=== PATIENT | female | born 1945 | race Caucasian/White ===

== ENCOUNTER 2018-08-31 10:49 | Day surgery (SDC) | payer OTHER ==
[~2018-08-31] VITALS: Ht 152.4 cm; Wt 70.8 kg
[~2018-08-31 10:49] MED LIST: PROPOFOL 200 MG INJ ONE
[2018-08-31 13:16] VITALS: Ht 152.4 cm; Wt 70.8 kg
[2018-08-31] MEDS ORDERED: FENOFIBRATE (13:23)
[2018-08-31 13:28] VITALS: BP 142/66; PULSE 72; RESP 17
--- NOTE | 2018-08-31 13:32 | PREAC ---
Date/Time of Note Date/Time of Note DATE: 08/31/18 TIME: 13:29 Anesthesia Eval and Record Evaluation Time Pre-Procedure Interview DATE: 08/31/18 TIME: 13:29 Age 72 Sex female NPO: 8 hrs Preoperative diagnosis Rectal Bleed Planned procedure Colonoscopy Past Medical History Past Medical History: Includes (H?O Breast Cancr) Surgery & Anesthesia Issues No known issue Meds Anticoagulation: No Beta Jc within 24 hr: No Reason Beta Jc not given: Pt. not on B-Jc Reported Medications [Fenofibrate] No Conflict Check 08/31/18 Meds reviewed: Yes Allergies Coded Allergies: No Known Allergy (Unverified , 08/31/18) Allergies Reviewed: Yes Labs/Studies Labs Reviewed: Reviewed by anesthesiologist test: N/A Pre-procedure Exam Last vitals Vital Signs Date Temp Pulse Resp B/P (MAP) Pulse Ox O2 O2 Flow FiO2 Time Delivery Rate 08/31/18 97.6 72 17 142/66 96 Room Air 13:28 (91) Airway: Adequate mouth opening Mallampati: Mallampati II Teeth: Normal Lung: Normal Heart: Normal ASA Physical Status ASA physical status: 2 Emergency: None Planned Anesthetic General/MAC: MAC Pre-operative Attestations Prior to commencing anesthesia and surgery, the patient was re-evaluated, there was verification of: *The patient's identity *The results of appropriate recent lab work and preoperative vital signs *The above evaluation not changing prior to induction *Anesthetic plan, risk benefits, alternative and complications discussed with patient/family; questions answered; patient/family understands, accepts and wishes to proceed. BENJAMIN SANDERS MD August 31, 2018 13:32
--- NOTE | 2018-08-31 13:56 | PAC ---
Date/Time of Note Date/Time of Note DATE: 08/31/18 TIME: 13:56 Post-Anesthesia Notes Post-Anesthesia Note Last documented vital signs Vital Signs Date Temp Pulse Resp B/P (MAP) Pulse Ox O2 O2 Flow FiO2 Time Delivery Rate 08/31/18 97.6 72 17 142/66 96 Room Air 13:28 (91) Activity: WNL Respiratory function: WNL Cardiovascular function: WNL Mental status: Baseline Pain reasonably controlled: Yes Hydration appropriate: Yes Nausea/Vomiting absent: Yes BENJAMIN SANDERS MD August 31, 2018 13:56
== END 2018-08-31 15:24 | disposition home or self-care (01) ==
LOC: GIL 10:49
PROVIDERS: ATTEND Internal Medicine
DX: Z12.11 Encounter for screening for malignant neoplasm of colon (principal); K44.9 Diaphragmatic hernia without obstruction or gangrene; K25.7 Chronic gastric ulcer without hemorrhage or perforation; K64.9 Unspecified hemorrhoids
CPT/HCPCS: 88305; 88312; 88313